=== PATIENT | female | born 1985 | race Caucasian/White ===

== ENCOUNTER 2017-03-13 12:24 | Outpatient (CLI) | payer BC ==
[2017-03-13 13:52] LABS: #Basophils 0.1 thou/uL (0.0-0.2); #Eosinphils 0.1 thou/uL (0.0-0.7); #Lymphocytes 1.7 thou/uL (1.20-3.40); #Monocytes 0.6 thou/uL (0.11-0.59); #Neutrophils 4.1 thou/uL (1.40-6.50); %Basophils 0.9 % (0.0-1.0); %Eosinophils 1.2 % (0.0-10.0); %Lymphocytes 26.2 % (21.0-51.0); %Monocytes 8.4 % (0.0-10.0); Hematocrit 40.2 % (36.0-47.0); Mean Platelet Volume 7.1 fL (7.4-10.4); Red Blood Cell (RBC) Count 4.17 mill/uL (4.20-5.40); White Blood Cell (WBC) Count 6.5 thou/uL (4.8-10.8)
== END 2017-03-13 12:25 | disposition home or self-care (01) ==
LOC: LABBT 12:24
PROVIDERS: ATTEND Orthopaedic Surgery Hand Surgery
DX: Z01.812 Encounter for preprocedural laboratory examination (principal); G56.02 Carpal tunnel syndrome, left upper limb
CPT/HCPCS: 85025

== ENCOUNTER 2017-03-14 05:32 | Day surgery (SDC) | payer BC ==
[2017-03-13 12:49] VITALS: BMI 29.7
[2017-03-14] MEDS ORDERED: CEFAZOLIN/Water 2 GM/20 ML SYRINGE ONE (06:04)
[2017-03-14] MEDS ORDERED: Fentanyl 100 MCG/2 ML VIAL ONE (07:15)
[2017-03-14] MEDS ORDERED: Midazolam HCl 2 mg/2 ml Vial ONE (07:15)
[2017-03-14] MEDS ORDERED: Bacitracin Zinc Ointment 30 gm TUBE ONE (07:16)
[2017-03-14] MEDS ORDERED: Betamet Acet/Betamet Na Ph 30 MG/5 ML VIAL ONE (07:43)
[2017-03-14] MEDS ORDERED: Bupivacaine PF 0.5% 30 ML VIAL ONE (07:43)
[2017-03-14] MEDS ORDERED: Ketorolac Tromethamine 30 MG/ML VIAL ONE ×3 (08:23→16:10)
--- NOTE | 2017-03-14 09:34 | OP ---
DATE OF PROCEDURE: 03/14/2017 PREOPERATIVE DIAGNOSIS: Left carpal tunnel syndrome. POSTOPERATIVE DIAGNOSIS: Left carpal tunnel syndrome. SURGEON: Chidi Joshi M.D. FINDINGS: Left carpal tunnel syndrome. No tenosynovitis seen. Tight transcarpal ligament with flat tening of the median nerve over 1 cm area distal and mid third of the transverse carpal ligament. TOURNIQUET TIME: 15 minutes. BLOOD LOSS: 10 mL. COMPLICATIONS: None. INJECTIONS: Celestone, 3 mL drip technique. DESCRIPTION OF PROCEDURE: After successful general LMA technique, the limb was prepped and draped. Timeout was done appropriately. Tourniquet was inflated after exsanguination of limb to 250 mmHg pre ssure. Incision was outlined in line with the ring finger from medial, lateral, and as far distal as [place]'s cardinal line for approximately a 7 mm distal to the volar wrist flexion crease. Incision carried through skin, subcutaneous tissue to reach the transverse carpal ligament. Protecting all st ructures radial and ulnar, we entered the transcarpal ligament just ulnar to the palmaris longus tend on. Carried incision through skin, subcutaneous tissue until we were in the middle of the transcarpa l ligament, we reached the underlying neuro tendinous structures. We then under direct visualization and using a self-retaining retractor, we were able to release transcarpal ligament using a [place] bl [place] from the midpoint distally. Then, we visualized and did not violate individual nerve branches, w e then released transcarpal ligament under direct visualization using a combination of a [place] blade and tenotomy scissors from the mid portion proximally. Once this was done, we inspected the nerve, it was intact, we had some stippling and flattening over 1 cm area in the center and distal third of the transverse carpal ligament region. We then placed 3 mL Celestone in drip technique around the ar ea of the nerve where there was stippling and flattening, and then we inspected the tendon areas and there was no tenosynovitis. Thus no tenosynovectomy was indicated. Tourniquet deflated. Hemostasis obtained. The wound was closed with interrupted 4-0 nylon in mattre ss pattern. A bulky dressing was applied. The patient left the operating room without evidence of a nesthetic or operative complication.
[2017-03-14] MEDS ORDERED: HYDROcodone/Acetaminophen 5/325 mg Tablet ONE (10:22)
[2017-03-14] MEDS ORDERED: Propofol 200 MG/20 ML VIAL ONE (16:10)
[2017-03-14] MEDS ORDERED: Ondansetron HCl/PF 4 MG/2 ML Vial ONE (16:10)
[2017-03-14] MEDS ORDERED: Lidocaine 1% PF 5 ML VIAL ONE (16:10)
== END 2017-03-14 10:33 | disposition home or self-care (01) ==
LOC: SDC 05:32
PROVIDERS: ATTEND Orthopaedic Surgery Hand Surgery
PROC: 01N50ZZ Release Median Nerve, Open Approach (ICD-10-PCS; principal; 2017-03-14)
DX: G56.02 Carpal tunnel syndrome, left upper limb (principal)
CPT/HCPCS: 96374; J0702; J1885; J2001; J2250; J2405; J2704; J3010; S0020